=== PATIENT | male | born 1985 | race Caucasian/White ===

== ENCOUNTER 2017-09-10 07:30 | Day surgery (SDC) | payer OTHER, BC ==
[2017-09-10] MEDS ORDERED: Sodium Chloride 0.9% 10 ML Syringe FLUSH PRN (08:13)
[2017-09-10] MEDS ORDERED: Lactated Ringers 1,000 ML IV SCH (08:13)
[2017-09-10] MEDS ORDERED: HYDROmorphone 2 MG/ML SDV IV ONE (09:15)
[2017-09-10] MEDS ORDERED: fentaNYL 100 MCG/2 ML SDV IV ONE (09:15)
[2017-09-10] MEDS ORDERED: Ketorolac 30 MG/ML SDV IVPUSH ONE (09:15)
[2017-09-10] MEDS ORDERED: Propofol 200 MG/20 ML SDV IV ONE (09:15)
[2017-09-10] MEDS ORDERED: Ondansetron 4 MG/2 ML SDV IVPUSH ONE (09:15)
[2017-09-10] MEDS ORDERED: Midazolam 1 MG/ML 2 ML SDV IV ONE (09:15)
[2017-09-10] MEDS ORDERED: ceFAZolin 2 GM in Premix Bag 1 BAG IV ONE (09:30)
[2017-09-10] MEDS ORDERED: Lidocaine 1% with EPINEPHrine 1:100,000 20 ML MDV ONE (09:36)
[2017-09-10] MEDS ORDERED: Bupivacaine 0.5% 30 ML SDV ONE (09:36)
--- NOTE | 2017-09-10 10:18 | PCM.OPNOTE ---
- General Post-Op/Procedure Note Date of Surgery/Procedure: 09/10/17 Operative Procedure(s): lih repair with mesh Findings: direct lih Pre Op Diagnosis: lih Post-Op Diagnosis: Same Anesthesia Technique: General LMA, Local (8 ml 1 % lido with epi/0.5% buvipicaine) Primary Surgeon: Tremayne Mullins Anesthesia Provider: Porter Ray Pathology: none EBL in mLs: 1 Complications: None Condition: Good Free Text/Narrative:: see dictation
[2017-09-10] MEDS ORDERED: Acetaminophen/HYDROcodone 325-5 MG Tab PO ONE (10:41)
[2017-09-10 12:16] VITALS: BP 133/89
--- NOTE | 2017-09-10 14:36 | OR ---
DATE OF OPERATION: 09/10/2017 SURGEON: Tremayne Mullins MD PROCEDURE PERFORMED: Left inguinal hernia repair with mesh. PREOPERATIVE DIAGNOSIS: Left inguinal hernia. POSTOPERATIVE DIAGNOSIS: Left inguinal hernia, direct. 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 The pain persisted despite ice and Motrin. He was seen in clinic and found to have a left inguinal hernia on exam, and he was offered and accepted repair. DESCRIPTION OF PROCEDURE: After an excellent LMA anesthetic was administered, the patient was prepped and draped in the usual sterile manner. A total of 8 mL of 1:1 mixture of 1% lidocaine with epinephrine and 0.5% bupivacaine were used to infiltrate our planned surgical incision site. The patient had a hernia repaired as an on this side. The local was injected into the previous hernia scar. Additional 3 mL was injected approximately 1 cm medial to the anterior-superior iliac spine by raising a skin wheal and doing a deep intermuscular injection to get to the genitofemoral and ilioinguinal nerves. Our incision was then carried out through the previous incision. Electrocautery was used to develop a plane exposing the aponeurosis of the external oblique. More local was used to inject under the external oblique. A total of 8 mL were used and then a stab incision was made through the external oblique and carried out through the external ring. The ilioinguinal nerve was not readily apparent or visualized. We were able to mobilize the cord. After dissecting a small cord lipoma out, which was clamped, divided, and tied with a 2-0 Vicryl tie, our attention was turned to the floor of the inguinal canal and a defect was noted in this area. A Bard mesh PerFix plug, lot #[id number], expiration date 2017-12, was then placed in the defect. This was then tacked into position circumferentially to transversalis fascia using interrupted 2-0 Vicryl. The overlay mesh was then laid on the floor of the inguinal canal and tacked into position using a running 2-0 Prolene inferiorly along the inguinal ligament as well as to close the keyhole and then SorbaFix was used to fix the mesh to the floor of the inguinal canal to ensure good adhesion. The area was irrigated. The aponeurosis of the external oblique was then closed with a running 3-0 Vicryl. 3-0 Vicryl was used to close Lyly fascia as well as to close the skin. Steri-Strips were applied. Needle, sponge, and instrument counts were reported as correct. The patient was taken to recovery room in a good condition having tolerated the procedure well. /[id number] /MODL
== END 2017-09-10 11:51 | disposition home or self-care (01) ==
LOC: FB.SDS 07:30
PROVIDERS: ATTEND Surgery
DX: K40.90 Unilateral inguinal hernia, without obstruction or gangrene, not specified as recurrent (principal); F41.9 Anxiety disorder, unspecified; F33.1 Major depressive disorder, recurrent, moderate; K21.9 Gastro-esophageal reflux disease without esophagitis; E66.9 Obesity, unspecified; Z68.30 Body mass index [BMI] 30.0-30.9, adult; Z79.899 Other long term (current) drug therapy
CPT/HCPCS: 49505; A9270; C1781; J0690; J1170; J1885; J2250; J2405; J2704; J3010; J7120